=== PATIENT | male | born 1945 | race Caucasian/White ===

== ENCOUNTER 2021-02-20 07:14 | Day surgery (SDC) | payer BC, MEDICARE, OTHER ==
[2021-02-20] MEDS ORDERED: Midazolam 1 MG/ML 2 ML SDV ONE (07:33)
[2021-02-20] MEDS ORDERED: fentaNYL 100 MCG/2 ML SDV ONE (07:33)
[2021-02-20] MEDS ORDERED: Propofol 200 MG/20 ML SDV ONE (07:33)
[2021-02-20] MEDS ORDERED: Sodium Chloride 0.9% 1,000 ML IV SCH (08:00)
[2021-02-20 10:10] VITALS: BP 104/70; PULSE 76
--- NOTE | 2021-02-20 14:16 | OR ---
DATE OF PROCEDURE: 02/20/2021 SURGEON: Chavez Sarmiento MD PROCEDURE PERFORMED: Colonoscopy. FINDINGS: 1. Sigmoid colon polyp, approximately 5 mm, completely removed using cold biopsy forceps. 2. Diverticulosis, mild, throughout entire colon, but classically concentrated in sigmoid colon. COMPLICATIONS: None. [employer] PROFESSOR: None. PREOPERATIVE DIAGNOSIS: Screening colonoscopy. POSTOPERATIVE DIAGNOSIS: Screening colonoscopy. RISKS: Risks, benefits, alternatives, and limitations including, but not limited to infection, bleeding, perforation, false positives, and false negatives were explained to the patient, and he wished to proceed. PROCEDURE IN DETAIL: The patient was placed in the left lateral decubitus position. Digital rectal exam was performed without abnormality. Scope was introduced and advanced atraumatically to the appendiceal orifice. A photo was taken. The scope was brought back through the ascending, transverse, descending colon, and retroflexed. No evidence of old or new blood. No masses. The polyp was identified and completely removed. The diverticulosis was described as mild without evidence of diverticulitis or bleeding. No colitis. No abnormalities on retroflex. Greater than 8 minutes was spent removing the scope. Prep was acceptable. Approximately 90% of the luminal surface could be seen. The patient tolerated the procedure well. Chavez Sarmiento MD /[id number]
== END 2021-02-20 10:10 | disposition home or self-care (01) ==
LOC: JP.SDS 07:14
PROVIDERS: ATTEND Surgery
DX: Z12.11 Encounter for screening for malignant neoplasm of colon (principal); D12.5 Benign neoplasm of sigmoid colon; K57.30 Diverticulosis of large intestine without perforation or abscess without bleeding; I10 Essential (primary) hypertension; E78.00 Pure hypercholesterolemia, unspecified
CPT/HCPCS: 45380; J2250; J2704; J3010; J7030